=== PATIENT | male | born 1960 | race Caucasian/White ===

== ENCOUNTER 2019-05-17 12:08 | Inpatient (IN) ==
--- NOTE | 2019-05-17 12:30 | EKG Report ---
Test Performed on : 05/17/2019 12:20:30 PM Test Reason : sob Blood Pressure : / mmHG Vent. Rate : 100 BPM Atrial Rate : 100 BPM P-R Int : 138 ms QRS Dur : 082 ms QT Int : 358 ms P-R-T Axes : 009 045 031 degrees QTc Int : 461 ms Normal sinus rhythm. Cannot rule out Anterior infarct , age undetermined Abnormal ECG No previous ECGs available Unconfirmed Result
--- NOTE | 2019-05-17 12:44 | Diag Imaging Result Doc PS360 ---
EXAM: CHEST-2 VIEWS HISTORY: sob TECHNIQUE: Chest two views COMPARISON: 05/03/2019 FINDINGS: The lungs are well expanded. The heart is not enlarged. The vessels are not distended. Questionable small left basilar infiltrates. No consolidation. No pleural effusions. IMPRESSION: Questionable small left basilar infiltrate Electronically signed by Pio Burton 05/17/2019 12:42 PM
[2019-05-17] MEDS ORDERED: PERCOCET-5 PO ONE (14:18)
[2019-05-17 14:19] LABS: BASO# 0.02 X1000 (0.0-0.2); BASO% 0.5 % (0.0-0.8); EOS% 5.4 % (0.0-10.0); HEMATOCRIT 35.2 % (42.0-52.0); HEMOGLOBIN 11.9 g/dL (14.0-18.0); LYMPH# 0.44 X1000 (1.2-3.4); LYMPH% 11.8 % (20.5-51.1); MCHC 33.8 g/dL (33-37); MCV 91.7 FL (81-99); MONO# 0.44 X1000 (0.11-0.59); MONO% 11.8 % (1.7-9.3); MPV 11.7 FL (7.4-10.4); NEUT# 2.62 X1000 (1.4-6.5); NEUT% 70.5 % (42.2-75.2); PLT 68 X1000 (130-400); RBC 3.84 XMIL (4.7-6.1); RDW 14.5 % (11.5-14.5); WBC 3.72 X1000 (4.8-10.8)
[2019-05-17 14:32] LABS: ALB/GLOB RATIO 0.7; ALBUMIN 2.5 g/dL (3.5-5.0); CALCIUM 8.2 mg/dL (8.8-10.2); CREATININE 1.3 mg/dL (0.7-1.2); POTASSIUM 4.6 mmol/L (3.5-5.1); TOTAL BILIRUBIN 1.55 mg/dL (0.20-1.00); TOTAL PROTEIN 6.1 g/dL (6.3-8.3)
[2019-05-17 15:01] LABS: CK INDEX 3.3 (0.0-2.5); CK-MB 7.31 ng/mL (0.0-5.0); INR 1.36; PTT 33.5 Seconds (22.3-41.8)
--- NOTE | 2019-05-17 17:47 | Diag Imaging Result Doc PS360 ---
EXAM: US ABD PARACENTESIS W S/I 05/17/2019 HISTORY: palliative, ascites TECHNIQUE: Ultrasound-guided paracentesis COMMENT: The risk and benefit of the procedure including the possibility of bleeding, infection, puncture of hollow viscus, or reaction to lidocaine was discussed with the patient and he agreed to the procedure. Following sterile preparation the skin laterally on the right and administration 1% lidocaine to the skin and deeper soft tissues, the paracentesis catheter was placed and subsequently 8.5 L of dark cloudy yellow fluid was drawn. There are no immediate complications and the patient tolerated this procedure well. IMPRESSION: Successful ultrasound-guided paracentesis. Electronically signed by Jimbo Chowdhury 05/17/2019 5:45 PM
[2019-05-17] MEDS ORDERED: DILAUDID IV ONE (18:00)
[2019-05-17] MEDS ORDERED: ALBUMIN 25% IV ONE (18:00)
--- NOTE | 2019-05-17 18:34 | PROVIDER DOCUMENTATION ---
This chart was entered by Vivi Mast Scribe, acting as scribe for Nelson Billy MD. HPI-General Adult - General Chief Complaint: Shortness of Breath Stated Complaint: ABD PAIN Time Seen by Provider: 05/17/19 13:59 Source: patient Allergies/Adverse Reactions: Patient Allergies Allergy/AdvReac Type Severity Reaction Status Date / Time No Known Allergies Allergy Verified 05/03/19 09:23 Home Medications: Home Medication List Medication Instructions Recorded Confirmed Last Taken Type Insulin Glargine [Lantus] 50 unit SQ BID 02/17/15 05/03/19 04/19/19 History Spironolactone 100 mg PO DAILY 02/17/15 05/03/19 04/18/19 History Lactulose 45 ml PO BID 08/23/15 05/03/19 04/18/19 History Fluticasone Propionate 1 spray NOLAN DAILY 12/17/18 05/03/19 04/19/19 History Furosemide [Lasix] 80 mg PO DAILY 12/17/18 05/03/19 04/18/19 History Escitalopram Oxalate [Lexapro] 5 mg PO DAILY 01/14/19 05/03/19 04/18/19 History Hydrocodone/Acetaminophen 1 tab PO BID 01/14/19 05/03/19 04/18/19 History [Hydrocodone-Acetamin 5-325 mg] Cholecalciferol (Vit D3) [Vitamin 5,000 unit PO DAILY 03/30/19 05/03/19 04/18/19 History D3] Ciprofloxacin HCl [Cipro] 1 tab PO DAILY 04/19/19 05/03/19 04/18/19 History Docusate Sodium [Colace] 100 mg PO DAILY #30 cap 05/03/19 Unknown Rx Magnesium Citrate [Citrate of 300 ml PO ONCE #1 bottle 05/03/19 Unknown Rx Magnesia] - History of Present Illness -Gen Adult Nature of Presenting Problems: 58 yowm c/o sob, left abd pain and needs a paracentesis. pt sts comes to er for tx every 2 wks. pt has had ascites for 2 yrs. pt going to b for tx june 16- for tx. pt sts the fluid makes him gain 22-30lbs. denies nvd, fever and cp. 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 Location of Pain/Injury: reports: abdomen Pain Radiation: reports: no radiation Severity: reports: mild Timing: reports: still present Context/Activities at Onset: reports: none Associated Symptoms: reports: denies symptoms Review of Systems - Adult - REVIEW OF SYSTEMS - ADULT Constitutional: reports: see HPI, other (pt requests paracentesis). denies: chills, fever, fatique Eyes: reports: no symptoms reported Ears, Nose, Mouth & Throat: reports: no symptoms reported Cardiovascular: reports: no symptoms reported, see HPI. denies: chest pain, orthopnea, palpitations Respiratory: reports: see HPI, shortness of breath. denies: excessive sputum production, hemoptysis, pleurisy Gastrointestinal: reports: see HPI, abdominal pain (paracentesis). denies: diarrhea, nausea, vomiting Genitourinary: reports: no symptoms reported Musculoskeletal: reports: no symptoms reported Integumentary: reports: no symptoms reported Neurological: reports: no symptoms reported Psychiatric: reports: no symptoms reported Endocrine: reports: no symptoms reported Hematologic/Lymphatic: reports: no symptoms reported Allergic/Immunologic: reports: no symptoms reported All Other Systems: Reviewed and Negative Past History - Adult - PAST MEDICAL HISTORY-ADULT Review of Records: reports: Old Records Reviewed, Nursing Assessment Review, Medications Reviewed, Social history reviewed & non-contributory. Major Childhood Illnesses: reports: denies history Cardiovascular: reports: HTN Respiratory: reports: denies history Gastrointestinal: reports: hepatitis (non alcoholic cirrhosis), liver disease, other (esoph varices) Obstetrical/Gynecological: reports: denies history Genitourinary: reports: kidney disease Musculoskeletal: reports: denies history Neurological: reports: denies history Psychiatric: reports: depression Endocrine/Immune: reports: Diabetes Other Conditions: reports: other cancer (throat) - PRIOR SURGERIES/PROCEDURES Surgical/Procedure History: reports: other (paracentesis) - IMMUNIZATION STATUS Childhood Immunizations: See Nurse Assessment Flu Vaccine: See Nurse Assessment - FAMILY HISTORY Family History: reviewed, not pertinent - SOCIAL HISTORY Smoking: non-smoker Substance Use: none/never Physical Exam-General - PHYSICAL EXAM-ADULT Initial Vital Signs Reviewed: Yes - CONSTITUTIONAL General Appearance: alert, mild distress, obese. negative: cachetic, lethargic, slow to respond - EYES Eyes: PERRL/EOMI, pink conjunctivae - HEAD, EARS, NOSE, MOUTH & THROAT HENMT: normocephalic/atraumatic, moist mucous membranes, normal ENT inspection - NECK Neck: non-tender, full range of motion, supple, normal inspection - RESPIRATORY Respiratory: chest non-tender, lungs clear, normal breath sounds, no pleuratic chest pain, no respiratory distress, no accessory muscle use, other (pt laying on side to breathe). negative: respiratory distress, decreased breath sounds, rhonchi, stridor, wheezing - CARDIOVASCULAR Cardiovascular: normal peripheral pulses, regular rate, rhythm - GASTROINTESTINAL (ABDOMEN) Abdominal Exam: normal bowel sounds, soft, no organomegaly, no pulsatile mass, distended, tenderness. negative: non tender, guarding, rigid - LYMPHATIC Lymphatic: no adenopathy - MUSCULOSKELETAL Back Exam: normal inspection, no CVA tenderness, no vertebral tenderness Extremity: normal range of motion, non-tender, normal inspection Peripheral Pulses: radial (R): 2+, radial (L): 2+ - SKIN Integumentary: normal color, normal turgor, warm/dry - NEUROLOGIC Neurologic: grossly normal, no motor/sensory deficits - PSYCHIATRIC Psych/Mental Status: normal mood/affect, normal thought content, normal thought process, oriented x 3 Progress - PLAN OF CARE/RESULTS Progress/Plan/Lab Results: Vital Signs - 8 hr 05/17/19 12:11 Temperature 98.0 F Pulse Rate 104 H Respiratory Rate 18 Blood Pressure 158/91 O2 Sat by Pulse Oximetry 97 Orders Category Date Time Status Cardiac Monitoring DIRECTED Care 05/17/19 12:19 Active Saline Loc NOW Care 05/17/19 12:19 Active CHEST-2 VIEWS [RAD] Stat Exams 05/17/19 12:19 Completed CBC WITH ELECTRONIC DIFF [HEME] Stat Lab 05/17/19 14:04 Ordered CK PROFILE [SP CHEM] Stat Lab 05/17/19 14:04 Ordered COMPREHENSIVE METABOLIC PANEL [CHEM] Stat Lab 05/17/19 14:04 Ordered PRO B-NATRIURETIC PEPTIDE Stat Lab 05/17/19 14:04 Ordered PROTIME WITH INR [COAG] Stat Lab 05/17/19 14:04 Ordered PTT [COAG] Stat Lab 05/17/19 14:04 Ordered TROPONIN T Stat Lab 05/17/19 14:04 Ordered CP/SOB/Palp >45 yrs of Age Stat Oth 05/17/19 12:19 Ordered EKG [EKG] Stat Ther 05/17/19 12:19 Draft Result Diagrams: 05/17/19 14:00 05/17/19 14:00 - REASSESSMENT Reassessment #1 Time Reassessed: 17:37 Status: other (pt is insisting to Dr. Billy that he is not having cp. while pt was at interventional rad I received lab results (apparently ordered by triage personnel) that his trop and ck-mb were elevated. I reviewed his initial ECG and found no injury pattern. I have ordered repeat assays (pending) and a repeat EKG is entirely normal. The patient states his abdomen pushes up on his chest but he is having absolutely no chest pain and no symptoms not typical of his prior serial presentations for paracentesis.) - EKG 1 Time of EKG reading by physician:: 12:22 EKG Read and Signed by:: Nelson Billy EKG Interpretation (*Must complete 3 of following elements*): Abnormal Rate: 100 (cannot rule out anterior infarct, age undetermined ) Rhythm: NSR [place]: normal NC Interval: normal ST Wave: normal 2 Time of EKG reading by physician:: 17:49 EKG Read and Signed by:: Nelson Billy EKG Interpretation (*Must complete 3 of following elements*): Normal Rate: 84 Rhythm: NSR [place]: normal QRS: normal NC Interval: normal ST Wave: normal - XRAY 1 XRAY: Bilateral XRAY Study: Chest Impression: Abnormal, See EMR Report (EXAM: CHEST-2 VIEWS HISTORY: sob TECHNIQUE: Chest two views COMPARISON: 05/03/2019 FINDINGS: The lungs are well expanded. The heart is not enlarged. The vessels are not distended. Questionable small left basilar infiltrates. No consolidation. No pleural effusions. IMPRESSION: Questionable small left basilar infiltrate Electronically signed by Pio Burton 05/17/2019 12:42 PM) - CONSULTS/PCP/HOSPITALIST Notification #1 *Consult/PCP/Hospitalist*: discussed card E w/ Dr. Rahman who agreed to adm for Card evaluation - CHANGE OF SHIFT REPORT (ED Provider) 1 Report Given and Care Transferred to:: Dr. Tamez Time of Transfer: 19:00 Items Pending: Labs Departure - Departure Date of Disposition Decision: 05/17/19 Time of Disposition Decision: 18:53 DIAGNOSIS: End stage liver disease, Abnormal cardiac enzyme level Disposition: ADMITTED INPATIENT 09 Certified Medical Emergency: Emergent Condition: Stable Referrals and Follow-Ups: None,PCP [Primary Care Provider] - - Critical Care Note This patient required my direct & personal management of CC.: No Attestation - Physician/ AMAURY Attestation Patient care was provided by Advanced Practice Provider:: No The physician spent face to face time with patient:: Yes Advanced Practice Provider documentation review:: Supervising physician onsite and consulted in the evaluation and care of this patient. The physician did have a face to face encounter with the patient. This chart was documented by the indicated scribe, (Vivi Mast, Antonella) and accurately reflects the services I performed and decisions made by me, Nelson Billy MD, as attested by the provider's signature.
[2019-05-17 19:33] LABS: CK-MB 7.53 ng/mL (0.0-5.0)
--- NOTE | 2019-05-17 20:13 | HISTORY AND PHYSICAL ---
HISTORY OF PRESENT ILLNESS: This is a patient with cirrhosis due to nonalcoholic steatohepatitis. He came in today for abdominal swelling. He comes periodically for paracentesis. I am not sure why it is done through the ER, but it has been done through the ER. He came back in March and then end of March, almost a month ago, and now he has come back again this evening. He had shortness of breath, so lab work in the ER was obtained prior to evaluation, which showed an elevated troponin. The patient denies any chest pain. No fever. He does have some dyspnea associated with ascites, but that is improved after his paracentesis, but he had abnormal cardiac enzymes, so we were requested to admit him for evaluation. Troponin was mildly elevated. CK and CK-MB were mildly elevated. He does have some baseline renal insufficiency with CKD in a stage 3 level. Looking at his numbers, he is right around stage 2 to 3. He is a GARCIA patient who is about to be listed for transplant, but that has not happened now. PAST MEDICAL HISTORY: 1. Type 2 diabetes. 2. Dyslipidemia. 3. Cirrhosis due to GARCIA. 4. Depression. 5. Stage 3 chronic renal failure. PAST SURGICAL HISTORY: Denies any major procedures. SOCIAL HISTORY: No tobacco. No ethanol. FAMILY HISTORY: Mother and father had heart issues, but around 65 years of age. Father was heavy drinker, heavy tobacco user. ALLERGIES: No known drug allergies. MEDICATIONS: List is being compiled, but he is on Lantus, Lasix, and Aldactone. REVIEW OF SYSTEMS: Otherwise negative times a 10 point review of systems. PHYSICAL EXAMINATION: VITAL SIGNS: Blood pressure is 158/91, heart rate of 104, respiratory rate 18, temperature 98 degrees, 97% on room air. CARDIOVASCULAR: Regular rate and rhythm. PULMONARY: Bilateral breath sounds. Clear to auscultation. GI: Soft, nontender, nondistended. Bowel sounds are positive. He does have still some residual ascites on exam. EYES: Sclerae anicteric. NECK: Supple. NEUROLOGIC: Nonfocal. No evidence of asterixis. MUSCULOSKELETAL: 4/5 in all 4 extremities. LABORATORY DATA: White count 3.7, hemoglobin and hematocrit 11 and 35, platelets of 68,000. INR of 1.36. Creatinine of 1.3, total bilirubin of 1.55, AST and ALT of 52 and 51, CK of 252, CK-MB of 7.53, and troponin was 0.094, which has pretty much been the same. MB went up a little bit. EKG did not show any specific changes. Ultrasound paracentesis today; 8.5 L of fluid was removed. ASSESSMENT: This is a 58-year-old male with history of nonalcoholic steatohepatitis cirrhosis, chronic renal failure, presenting with shortness of breath related to ascites, but on incidental labs, he has positive cardiac markers. No clear symptoms associated. Electrocardiogram is nonspecific. 1. Abnormal cardiac enzymes. We will get a cardiology opinion. We will get a couple more sets of enzymes, order echocardiogram, and keep him nothing by mouth until we can get that information. It does not appear he has had unstable angina. He does have risk factors for that between nonalcoholic steatohepatitis cirrhosis and diabetes. He may need further cardiac workup. He has renal insufficiency which we will see if they want to decide to do left heart catheterization versus stress versus other things. We will start low-dose aspirin, although obviously there is concern over bleeding, and I am reluctant to start any anticoagulation until we get a little bit more definitive proof. We will get an echocardiogram tomorrow and follow. 2. Cirrhosis. He is on a monthly schedule for paracenteses. We will see if the fluid was abnormal. The thing is, I do not think any labs were ordered on that fluid, but we will continue diuretics. He is on Aldactone and Lasix. We will continue to follow closely. 3. Diabetes. We will continue to monitor blood sugars, sliding scale, check an A1c, and follow. DISPOSITION: Pending his clinical course. cc: Nicholas Rahman MD
[2019-05-17] MEDS ORDERED: NEXIUM IV SCH (20:32)
[2019-05-17] MEDS ORDERED: SODIUM CHLORIDE 0.9% INJ SCH (20:32)
[2019-05-17] MEDS ORDERED: ZOFRAN IV PRN (20:32)
[2019-05-17] MEDS ORDERED: TYLENOL PO PRN (20:32)
[2019-05-17] MEDS ORDERED: HUMULIN R SUBQ SCH (21:00)
[2019-05-17] MEDS ORDERED: LOPRESSOR PO SCH (21:00)
[2019-05-17] MEDS: PROTONIX IV SCH (21:32)
[2019-05-17] MEDS: ASPIRIN EC PO SCH (21:32)
[2019-05-17] MEDS: SODIUM CHLORIDE 0.9% INJ SCH (21:32)
--- NOTE | 2019-05-17 22:54 | EKG Report ---
Test Performed on : 05/17/2019 5:49:44 PM Test Reason : elev troponin Blood Pressure : / mmHG Vent. Rate : 084 BPM Atrial Rate : 084 BPM P-R Int : 202 ms QRS Dur : 092 ms QT Int : 382 ms P-R-T Axes : 046 049 057 degrees QTc Int : 451 ms Normal sinus rhythm. Normal ECG When compared with ECG of 17-MAY-2019 12:20, (Unconfirmed) No significant change was found Unconfirmed Result
[2019-05-17] MEDS: MORPHINE IV PRN (23:14)
[2019-05-18] MEDS: MORPHINE IV PRN (04:12)
--- NOTE | 2019-05-18 07:09 | EKG Report ---
Test Performed on : 05/18/2019 07:02:52 AM Test Reason : cp Blood Pressure : / mmHG Vent. Rate : 087 BPM Atrial Rate : 087 BPM P-R Int : 178 ms QRS Dur : 094 ms QT Int : 392 ms P-R-T Axes : 033 053 045 degrees QTc Int : 471 ms Normal sinus rhythm. Nonspecific T wave abnormality Prolonged QT Abnormal ECG When compared with ECG of 17-MAY-2019 17:49, (Unconfirmed) No significant change was found Confirmed by Octavio Hernández MD ([id number]) on 05/18/2019 8:31:01 AM
[2019-05-18 07:14] LABS: BASO# 0.03 X1000 (0.0-0.2); BASO% 0.9 % (0.0-0.8); EOS% 5.7 % (0.0-10.0); HEMATOCRIT 35.8 % (42.0-52.0); HEMOGLOBIN 12.1 g/dL (14.0-18.0); LYMPH# 0.55 X1000 (1.2-3.4); LYMPH% 15.8 % (20.5-51.1); MCH 30.7 PG (27-31); MCHC 33.8 g/dL (33-37); MCV 90.9 FL (81-99); MONO# 0.46 X1000 (0.11-0.59); MONO% 13.2 % (1.7-9.3); MPV 10.9 FL (7.4-10.4); NEUT# 2.24 X1000 (1.4-6.5); NEUT% 64.4 % (42.2-75.2); PLT 71 X1000 (130-400); RBC 3.94 XMIL (4.7-6.1); RDW 14.4 % (11.5-14.5); WBC 3.48 X1000 (4.8-10.8)
[2019-05-18 07:18] LABS: ALB/GLOB RATIO 0.6; ALBUMIN 2.2 g/dL (3.5-5.0); CREATININE 1.3 mg/dL (0.7-1.2); MAGNESIUM 1.7 mg/dL (1.5-2.7); POTASSIUM 4.5 mmol/L (3.5-5.1); TOTAL BILIRUBIN 1.83 mg/dL (0.20-1.00); TOTAL PROTEIN 5.6 g/dL (6.3-8.3)
[2019-05-18] MEDS: ALDACTONE PO SCH (10:20)
[2019-05-18] MEDS: LASIX PO SCH (10:21)
[2019-05-18] MEDS: ASPIRIN EC PO SCH (10:21)
[2019-05-18] MEDS ORDERED: ROBAXIN PO PRN (10:45)
[2019-05-18] MEDS ORDERED: ROBAXIN PO ONE (10:45)
[2019-05-18] MEDS: PERCOCET-5 PO PRN ×3 (11:42→23:17)
--- NOTE | 2019-05-18 12:35 | CARDIOLOGY CONSULTATION ---
DATE: 05/18/2019 CONSULTATION REQUESTED BY: The hospitalist service. REASON FOR CONSULTATION: Possible myocardial infarction. PRIMARY PHYSICIAN: Motor Vehicle Emissions Inspector, Dr. Holman at [facility]. CHIEF COMPLAINT: Abdominal swelling, shortness of breath, abnormal cardiac enzymes. HISTORY: Mr. Winn is a 58-year-old, male who came in yesterday to the emergency room, expecting to have a routine paracentesis. The patient reported having some increasing dyspnea and he had been having the paracenteses periodically, every couple of weeks for some time now. Because the patient reported having some increasing symptoms, the emergency room physician went ahead and did an EKG that showed sinus rhythm with no significant ST-T abnormalities. They have repeated the EKG again which looked pretty unremarkable the same day at 5:49 p.m. and then this morning at 7 a.m., the EKG showed sinus rhythm with a nonspecific T-wave flattening. The patient's cardiac enzymes were reported initially at 219 and then subsequently 252. This is a total CPK. The CK-MB fraction was 7.31 and then 7.53. The index was 3.3% and then 3%. Her troponin levels were noted to be 0.095 and 0.094. They are more troponins and CPKs requested. Initial BUN and creatinine were elevated at 28 and 1.3, subsequent 25 and 1.3. His albumin level is 2.5 and 2.2. The patient denies having any chest pain. 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 The patient had 9 L of ascitic fluid removed yesterday. An ultrasound was done and it showed that there was a cloudy yellow fluid drawn. PAST MEDICAL HISTORY: The patient's past history is positive for cirrhosis of the liver, which is nonalcoholic steatohepatitis. He has diabetes mellitus type 2. He has dyslipidemia. He has chronic kidney disease and depression. The patient was morbidly obese. He still has a body mass index of 42. PAST SURGICAL HISTORY: His surgical history is negative other than banding of esophageal varices and gastric varices by gastroenterology service in the past for recurrent gastrointestinal bleeding. The last episode of gastrointestinal bleeding happened over a year and a half ago. SOCIAL HISTORY: He is single, disabled. Lives in [place]. Not a smoker or a drinker. FAMILY HISTORY: Both parents had heart disease. ALLERGIES: Noncontributory. HOME MEDICATIONS: Listed at this time included vitamin D3, ciprofloxacin, docusate, Lexapro, fluticasone, furosemide, hydrocodone, acetaminophen, insulin Lantus 50 units twice a day, lactulose 40 mL twice a day, spironolactone 100 daily, and magnesium citrate. REVIEW OF SYSTEMS: The patient has had some chronic puffiness of the ankles. Some exertional dyspnea, usually when he gains weight and the abdomen gets distended. He has had no chest pain. He says that he has been exercising regularly under the guidance of a personal injury litigation paralegal to improve his endurance and muscle tone. No other major positive. He tells me that he has been upgraded in the transplant list at [facility] because his score is up to 21 and that makes him at high risk of bad outcomes in the next few months if transplantation is not carried out. PHYSICAL EXAMINATION: Today, blood pressure 113/51, temperature 97.8 degrees, pulse 87, respirations 19. He is awake, alert, obese, in no distress. HEENT: Unremarkable. Chest: Sounds clear to auscultation and percussion. Heart: Sounds are regular and rhythmic. I do not hear any gallop or murmur. Abdomen: Distended with ascites. I could not feel any hepatomegaly or splenomegaly. Extremities: Show trace edema. Good pulses. Neurologic Examination: Nonfocal. Moves all 4 extremities. LABORATORY DATA: Blood work includes a white cell count of 3480, hemoglobin 12.1, hematocrit 35.8, platelet count 71,000. Sodium 135, potassium 4.5, BUN 25, creatinine 1.3. Albumin is 2.2. IMPRESSION: 1. Patient who presents with increasing ascites and he is status post paracentesis. He has cirrhosis of the liver secondary to nonalcoholic steatohepatitis. 2. Non-ST elevation myocardial infarction. This probably relates to a hemodynamic problem related to the portal hypertension and cirrhosis. 3. The patient has some evidence of coronary atherosclerosis on CT scan of the abdomen. There is some calcification of the left anterior descending and also the right coronary artery. 4. Diabetes mellitus type 2. 5. Morbid obesity. 6. Chronic kidney disease. 7. Thrombocytopenia, leukopenia, and anemia, probably related to splenomegaly/hypersplenism. RECOMMENDATIONS: At this time, we will arrange for a walking Lexiscan MPI study to further risk stratify this patient. If the nuclear stress test shows that there is a significant area of myocardium at jeopardy, then I will recommend to do a coronary arteriogram with intention of proceeding with stenting of the culprit vessel with a bare metal stent. This has to be understood by all parties because this patient cannot be subjected to long-term antiplatelet therapy due to his tendency to bleed. Further intervention will depend on the results of the aforementioned test. At this time, the patient appears hemodynamically stable. cc: Josias Jarrett MD MTDD
--- NOTE | 2019-05-18 13:54 | GASTROENTEROLOGY CONSULTATION ---
DATE: 05/18/2019 REASON FOR CONSULTATION: History of cirrhosis of the liver. HISTORY OF PRESENT ILLNESS: This is a 58-year-old, male who came in for an outpatient scheduled paracentesis. Patient states he is followed by Dr. Holman at [facility]. He has been following with him for approximately 5 years. He gets a local paracentesis biweekly per patient report. He came in for his scheduled paracentesis yesterday. He had reported to the emergency room that he was having some increased shortness of breath. Lab work was done including cardiac evaluation which had shown some elevation in his cardiac enzymes and troponin. He was admitted to the hospital for further evaluation. During his paracentesis, 8.5 L of dark cloudy yellow fluid was removed. I do not see where there was any fluid analysis done. Patient states he did receive albumin. Patient is very knowledgeable of his diagnosis of cirrhosis. He states he usually takes lactulose 90 mL daily and adjusts as needed. He states he has just been approved to start Xifaxan prescribed by Dr. Holman and he is waiting on the delivery of that medication. He usually has approximately 3 bowel movements daily. He does report shortness of breath more so when it is time for his paracentesis. He reported in February 2012, he had GI bleeding with a diagnosis of esophageal variceal bleed. He states his last EGD was about a year and a half ago. He states he does not see a local sash maker. Again, he has been following with Dr. Holman for approximately 5 years. He states he has been bumped up on the transplant evaluation list and actually has an appointment for a 3 day workup starting May. The patient's diagnosis of cirrhosis is related to nonalcoholic steatohepatitis. The patient is overweight. He has been working on diet and weight loss. He has denied any chest pain. At the time of my evaluation, he was finishing up his echocardiogram. PAST MEDICAL HISTORY: Cirrhosis of the liver due to GARCIA (nonalcoholic steatohepatitis), stage 3 chronic renal failure, type 2 diabetes, dyslipidemia, history of depression. PAST SURGICAL HISTORY: None reported. ALLERGIES: No known drug allergies. MEDICATIONS: Vitamin D3 5000 units daily, Cipro 1 tablet daily, Colace 100 mg daily, Lexapro 5 mg daily, fluticasone 1 spray nasally daily, Lasix 80 mg daily, hydrocodone/acetaminophen 5/325 mg twice a day, Lantus insulin 50 units twice a day, lactulose 45 mL twice a day, magnesium citrate as needed, spironolactone 100 mg daily. SOCIAL HISTORY: No reported tobacco or alcohol use. REVIEW OF SYSTEMS: Per history of present illness. The patient has denied chest pain but reports shortness of breath. He does have increased fluid retention and has biweekly paracenteses here locally, managed by Dr. Holman at [facility]. PHYSICAL EXAMINATION: Vital Signs: Temperature 97.8 degrees, pulse 87, respirations 19, blood pressure 113/51. General: The patient is awake and alert, in no acute distress. HEENT: Normocephalic, atraumatic. Pupils equal, round, reactive to light. Sclerae are nonicteric. Cardiovascular: Regular rate and rhythm. Respiratory: Lung sounds essentially clear bilaterally. Abdomen: Obese. He has a Band-Aid from his paracentesis yesterday to the right lower quadrant. Abdomen is nontender. Positive bowel sounds. Extremities: With some bilateral lower extremity edema noted. Neurological: Cranial nerves 2-12 grossly intact. Patient is awake, alert, oriented to person, place, and time. DIAGNOSTIC RESULTS: Laboratory: Hematology: WBC 3.48, hemoglobin 12.1, hematocrit 35.8, MCV 90.9, platelets 71,000. Coagulation: Prothrombin time 17.0, INR 1.36, PTT 33.5. Chemistry: Sodium 135, potassium 4.5, chloride 104, CO2 of 24, BUN 25, creatinine 1.3, glucose 248. Total bilirubin 1.83, AST 43, ALT 41, alkaline phosphatase 160. Creatine kinase 194, creatine kinase index 3.0, CK-MB 7.53, troponin 0.114. ProBNP 107. Total protein 5.6, albumin 2.2. TSH 177. Paracentesis ultrasound on 05/17/2019 showed 8.5 L of dark cloudy yellow fluid was withdrawn. I do not see where there were any fluid analyses done on the ascitic fluid. ASSESSMENT AND PLAN: 1. Cirrhosis of the liver with recurrent ascites requiring frequent paracenteses. The patient follows with Dr. Holman at [facility]. He has an appointment for evaluation to be placed on transplant list on June 16. 2. Abnormal cardiac enzymes with recurrent shortness of breath. The patient has been seen by cardiology and evaluation is in progress. 3. We will continue to follow. I recommend he take his scheduled medications and diuretics for cirrhosis of the liver. We will try to see if there is any fluid available in the lab or pathology to order some analysis from his paracentesis yesterday. I recommend he follow with Dr. Holman as scheduled. We will continue to follow during his hospital course. I have discussed this case with Dr. Knight. Thank you for this consultation. Dictated by HOLLI Tejada for Jorge Knight MD cc: HOLLI Mcnamara MD [facility]
[2019-05-18] MEDS: CIPRO PO SCH (14:20)
[2019-05-18 15:36] LABS: GLUCOSE BODY FLUID 319 mg/dL; TOTAL PROT BODY FLUID 0.7 g/dL
[2019-05-18 16:06] LABS: BODY FLUID SOURCE ASCETIC FLUID; MONOS 82 %; POLYS 18 %; WBC BF 159 /cumm
--- NOTE | 2019-05-18 16:10 | ECHO REPORT ---
ORDER DATE: 05/17/2019 INTERPRETING PHYSICIAN: Dr. Lobo Angelo ECHOCARDIOGRAPHIC MEASUREMENTS: 1. Interventricular septum 1.1. 2. Left ventricular diastolic diameter 4.2. 3. Left atrium 4. 4. Aorta 3.2. FINDINGS: 1. Aortic valve leaflets mildly sclerosed. Trileaflet opening normally. 2. Mitral valve was normal. 3. Tricuspid valve was normal. 4. Pulmonic valve was normal. 5. There is trace to mild mitral regurgitation. 6. Peak velocity across the aortic valve less than 2 m/sec. There is no aortic stenosis or regurgitation. There is trace tricuspid regurgitation. 7. Peak velocity across the tricuspid valve less than 2 m/sec. 8. Normal left ventricular cavity size. Estimated ejection fraction of 65% to 70%. 9. There is no pericardial effusion or obvious intracardiac mass or thrombus. cc: MD Nicholas Cervantes MD
--- NOTE | 2019-05-18 17:16 | PROGRESS NOTE ---
DATE: 05/18/2019 SUBJECTIVE: Patient has no major complaints. OBJECTIVE: Blood pressure is stable 116/61, heart rate of 84, respiratory rate 14, temperature 97.4 degrees, 100% on room air.Cardiovascular: Regular rate and rhythm. Pulmonary: Bilateral breath sounds clear to auscultation. Gastrointestinal: Soft, nontender, nondistended. Bowel sounds are positive. His abdomen is still protuberant. There is still fluid. LABORATORY DATA: White count is 3, hemoglobin 12, hematocrit 35, platelets 71,000. Creatinine 1.3. Troponin is 0.114. PROBLEM LIST: 1. Abnormal cardiac enzymes. We will continue to follow. I greatly appreciate Dr. Jarrett's help. He may have had a non-STEMI. He is going to get a Lexiscan, and we will continue to follow, see if there is significant ischemia/perfusion defects.We will do coronary angiogram based on stress testing which will be accomplished tomorrow. If stable, then we will continue to follow. Disposition pending clinical status. 2. Cirrhosis. He is about to be listed for transplant, but right now he cannot be done with that. 3. Nonalcoholic steatohepatitis. We will continue to follow closely. 4. Type 2 diabetes. Continue his regular medications and follow. DISPOSITION: Pending his clinical status. cc: Nicholas Rahman MD [facility]
[2019-05-18 18:11] LABS: ALB/GLOB RATIO 0.7; ALBUMIN 2.7 g/dL (3.5-5.0); CALCIUM 8.3 mg/dL (8.8-10.2); CREATININE 1.5 mg/dL (0.7-1.2); POTASSIUM 4.8 mmol/L (3.5-5.1); TOTAL BILIRUBIN 1.82 mg/dL (0.20-1.00); TOTAL PROTEIN 6.4 g/dL (6.3-8.3)
[2019-05-18] MEDS ORDERED: HUMALOG IV ONE (18:38)
[2019-05-18] MEDS: PROTONIX IV SCH (20:55)
[2019-05-18] MEDS: LANTUS INSULIN SUBQ SCH (20:55)
[2019-05-18] MEDS: HUMALOG SUBQ SCH (20:55)
[2019-05-18] MEDS: SODIUM CHLORIDE 0.9% INJ SCH (20:55)
[2019-05-18] MEDS: LACTULOSE PO SCH (20:55)
[2019-05-18] MEDS ORDERED: HUMALOG SUBQ SCH (21:00)
[2019-05-18] MEDS ORDERED: NORCO-5 PO SCH (21:00)
[2019-05-19] MEDS: PERCOCET-5 PO PRN (04:07)
[2019-05-19] MEDS: HUMALOG SUBQ SCH ×2 (06:01→13:06)
--- NOTE | 2019-05-19 07:21 | EKG Report ---
Test Performed on : 05/19/2019 06:30:37 AM Test Reason : dyspnea Blood Pressure : / mmHG Vent. Rate : 089 BPM Atrial Rate : 089 BPM P-R Int : 174 ms QRS Dur : 088 ms QT Int : 368 ms P-R-T Axes : 038 049 030 degrees QTc Int : 447 ms Normal sinus rhythm. Normal ECG When compared with ECG of 18-MAY-2019 07:02, No significant change was found Confirmed by Octavio Hernández MD ([id number]) on 05/19/2019 12:02:37 PM
[2019-05-19 08:10] LABS: BASO# 0.02 X1000 (0.0-0.2); BASO% 0.6 % (0.0-0.8); EOS# 0.18 X1000 (0.0-0.7); EOS% 5.1 % (0.0-10.0); HEMATOCRIT 34.7 % (42.0-52.0); HEMOGLOBIN 11.5 g/dL (14.0-18.0); LYMPH# 0.52 X1000 (1.2-3.4); LYMPH% 14.9 % (20.5-51.1); MCH 30.3 PG (27-31); MCHC 33.1 g/dL (33-37); MCV 91.3 FL (81-99); MONO# 0.42 X1000 (0.11-0.59); MPV 10.9 FL (7.4-10.4); NEUT# 2.36 X1000 (1.4-6.5); NEUT% 67.4 % (42.2-75.2); PLT 67 X1000 (130-400); RDW 14.5 % (11.5-14.5)
[2019-05-19] MEDS: LASIX PO SCH (08:11)
[2019-05-19] MEDS: ALDACTONE PO SCH (08:12)
[2019-05-19] MEDS: ASPIRIN EC PO SCH (08:12)
--- NOTE | 2019-05-19 08:12 | CARDIOLOGY PROGRESS NOTE ---
DATE: 05/19/2019 CHIEF COMPLAINT: Abnormal blood tests, abdominal bloating. SUBJECTIVE: Mr. Winn had an uneventful night. He is feeling fine today. He is not having any discomfort in the abdomen or chest. His breathing is comfortable. OBJECTIVE: VITAL SIGNS: Blood pressure is 123/74, temperature 98.4 degrees, pulse 84. respirations 18. GENERAL: He is awake, alert, oriented, in no distress. HEENT: Normal. CHEST: Clear to auscultation and percussion. HEART: Sounds are regular and rhythmic. I do not hear gallop or murmur. ABDOMEN: Distended with ascites. EXTREMITIES: Showed no significant edema. NEUROLOGICAL: Follows commands, moves 4 extremities. BLOOD WORK: This morning, his glucose 220. His troponin has drifted to 0.101. The high was 0.114. This patient presented basically with some shortness of breath due to abdominal distention and then they tested troponin levels that were abnormal and that led to the suspicion of myocardial infarction. His CPKs were also elevated at 219, they peaked at 252 and they dropped to 192. His CKMB fraction by index was positive. The highest CKMB measured is 7.53 nanograms per mL. 1. Therefore, patient may have suffered a small non-[place]. 2. Cirrhosis with advanced liver failure. 3. Hypersplenism. 4. Pancytopenia secondary to that. 5. Morbid obesity. 6. Coronary atherosclerosis detected on CT of the abdomen involving LAD and right coronary artery. RECOMMENDATIONS: We will pursue with stress testing today. The resting gated images from yesterday showed normal myocardial perfusion. I did not see any definite defect. If his stress test is abnormal, then I will recommend a heart catheterization with a specific intention to pursue with intervention using a bare metal stent to limit the extent of antiplatelet therapy. The patient does have varices in the esophagus and stomach that could potentially bleed in a catastrophic manner. Otherwise, if the stress test is completely negative, I believe I will let the patient go home and then discuss further intervention with his team of hepatologists and other physicians at [facility] since the patient is getting closer to being included in the liver transplant roll. cc: Josias Jarrett MD
[2019-05-19] MEDS: LANTUS INSULIN SUBQ SCH (08:13)
[2019-05-19] MEDS ORDERED: LEXAPRO PO SCH (09:00)
[2019-05-19] MEDS ORDERED: COLACE PO SCH (09:00)
[2019-05-19] MEDS ORDERED: LEXISCAN ONE (09:59)
[2019-05-19 12:19] VITALS: BP 141/74
[2019-05-19] MEDS: LACTULOSE PO SCH (13:05)
[2019-05-19] MEDS: CIPRO PO SCH (13:17)
--- NOTE | 2019-05-19 13:29 | Diag Imaging Result Document ---
PROCEDURE NAME: MYOCARDIAL PERF SCAN, STR/REST - 05/18/2019 INDICATION: Non-ST elevation ID, history of cirrhosis. PROCEDURES PERFORMED: 1. Walking Lexiscan stress. 2. Two-day stress rest myocardial perfusion imaging. PROCEDURE IN DETAIL: Mr. Winn was brought to the nuclear laboratory and had a resting study with injection of 40.8 mCi of technetium-99m sestamibi with the usual imaging protocol utilized. He subsequently was brought back and had a walking Lexiscan and at peak stress, was injected with 41.4 mCi of technetium-99m sestamibi with the usual imaging protocol utilized. FINDINGS: Lexiscan stress results: 1. Baseline EKG shows sinus rhythm, nonspecific diffuse ST changes noted. 2. Lexiscan stress did not demonstrate any clear evidence of ischemic related EKG changes or significant arrhythmias during the study. Perfusion imaging results: 1. No evidence of abnormal extracardiac uptake. 2. TID ratio was 0.91. 3. Perfusion imaging demonstrates no evidence of ischemic changes. There may be some very small amount of scant inferior soft tissue attenuation in the basal and mid inferior hodge. Wall motion is intact in this area. Again, no evidence of ischemic changes. 4. Normal ejection fraction of 90% on stress with an end-diastolic volume of 96, end-systolic volume of 10. Normal wall motion. cc: MD Josias Aviles MD
--- NOTE | 2019-05-19 19:50 | GASTROENTEROLOGY PROGRESS NOTE ---
DATE: 05/19/2019 SUBJECTIVE: Patient is sitting up on the side of the bed in no acute distress. He has a friend at the bedside. The patient states he has had a stress test today, waiting on those results, following with Cardiology. Fluid analysis from his paracentesis did not show evidence of bacterial peritonitis. OBJECTIVE: Vital Signs: Temperature 98.6 degrees, pulse 97, respirations 17, blood pressure 141/74. General: Patient is awake and alert, in no acute distress. LABORATORY: Hematology: WBC 3.50, hemoglobin 11.5, hematocrit 34.7, MCV 91.3, platelets 67,000. Chemistry: Sodium 134, potassium 4.8, chloride 101, CO2 25, BUN 25, creatinine 1.5, glucose 338, total bilirubin 1.82, AST 52, ALT 48, alkaline phosphatase 179, creatine kinase 192. Troponin 0.101. These labs were from 05/18/2019. ASSESSMENT AND PLAN: 1. Cirrhosis of the liver with recurrent ascites, requiring frequent paracentesis. Fluid analysis did not show evidence of bacterial peritonitis. Patient is following with Dr. Holman at [facility]. He has an appointment for evaluation for transplant list on . Recommend he keep that appointment. 2. Abnormal cardiac enzymes, shortness of breath. Patient is currently undergoing cardiac evaluation. Continue recommendations by hedis abstractor. 3. Continue current medications. We will be available as needed. Recommend that patient follow with Dr. Holman as scheduled at [facility]. I have discussed this case with Dr. Knight. Dictated by HOLLI Tejada for Jorge Knight MD cc: HOLLI Mcnamara MD
--- NOTE | 2019-05-20 05:46 | DISCHARGE SUMMARY ---
ADMISSION DATE: 05/17/2019 DISCHARGE DATE: 05/19/2019 DISCHARGE DIAGNOSES: 1. Abnormal cardiac enzymes, perhaps demand ischemia related to a paracentesis, possible hypoperfusion after paracentesis. 2. Cirrhosis due to nonalcoholic steatohepatitis. 3. Type 2 diabetes. CONSULTATIONS: Dr. Jarrett. PROCEDURES: Paracentesis which she had 8.5 L of fluid removed. IMAGIN. Echocardiogram showed an EF of 65 to 70 percent. No major valvular pathology. 2. Myocardial perfusion scan showed no evidence of perfusion defect. No wall motion abnormalities. EF was actually 90%. Test was felt to be negative. Cardiology felt that the patient, therefore, did not have ischemic heart disease, not entirely sure what caused his abnormal cardiac enzymes, but if stress test was negative felt he could follow up with his transplant physicians, and they would be able to allow him to be discharged and proceed with his transplant evaluation. DISCHARGE CONDITION: Stable. DISCHARGE MEDICATIONS: He was maintained on his regular medications. 1. Cipro 500 daily. 2. Fluticasone daily. 3. [place] p.r.n. 4. Lactulose 45 b.i.d. 5. Lantus 50 b.i.d. 6. Lasix 80 daily. 7. Lexapro 5 daily. 8. Spironolactone 100 daily. 9. Colace 100 daily TIME SPENT: 32 minute discharge. cc: MD Dr. River Murrell at [facility]
== END 2019-05-19 15:33 | disposition home or self-care (01) | DRG 433 ==
LOC: ED 12:08 → 2N 20:35
PROVIDERS: ATTEND Internal Medicine

== ENCOUNTER 2019-10-06 08:19 | Inpatient (IN) ==
[2019-10-06] MEDS ORDERED: NORFLEX IM ONE (10:46)
[2019-10-06] MEDS ORDERED: DILAUDID IV ONE (10:47)
[2019-10-06] MEDS ORDERED: ZOFRAN IV ONE (10:47)
[2019-10-06 11:59] LABS: BASO# 0.03 X1000 (0.0-0.2); BASO% 0.5 % (0.0-0.8); EOS# 0.24 X1000 (0.0-0.7); EOS% 4.3 % (0.0-10.0); HEMATOCRIT 36.9 % (42.0-52.0); HEMOGLOBIN 12.3 g/dL (14.0-18.0); IMM GRAN# 0.03 X1000 (0.0-0.04); IMM GRAN% 0.5 % (0.0-0.5); LYMPH# 0.64 X1000 (1.2-3.4); LYMPH% 11.5 % (20.5-51.1); MCH 30.4 PG (27-31); MCHC 33.3 g/dL (33-37); MCV 91.1 FL (81-99); MONO# 0.44 X1000 (0.11-0.59); MONO% 7.9 % (1.7-9.3); MPV 11.4 FL (7.4-10.4); NEUT# 4.17 X1000 (1.4-6.5); NEUT% 75.3 % (42.2-75.2); PLT 84 X1000 (130-400); RBC 4.05 XMIL (4.7-6.1); RDW 15.5 % (11.5-14.5); WBC 5.55 X1000 (4.8-10.8)
[2019-10-06 12:05] LABS: ALB/GLOB RATIO 0.6; ALBUMIN 2.5 g/dL (3.5-5.0); CALCIUM 8.4 mg/dL (8.8-10.2); POTASSIUM 4.7 mmol/L (3.5-5.1); TOTAL BILIRUBIN 2.07 mg/dL (0.20-1.00); TOTAL PROTEIN 6.7 g/dL (6.3-8.3)
--- NOTE | 2019-10-06 14:38 | Diag Imaging Result Doc PS360 ---
US ABD PARACENTESIS W S/I - 10/06/2019 INDICATION: Ascites COMPARISON: 09/29/2019 FINDINGS: The risks and benefits of the procedure were discussed with the patient. All questions were answered. Written and verbal consent was obtained. Ultrasound scanning demonstrated ascites. Overlying skin was prepped and draped in sterile fashion. Local anesthesia was achieved with injection of 10 cc 1% lidocaine. The paracentesis catheter was advanced until the return of ascites fluid. 12.4 L of blood-tinged serosanguineous fluid was aspirated. The catheter was withdrawn intact. There were no known complications. IMPRESSION: Technically successful ultrasound-guided paracentesis with no known complications. Electronically signed by Jose Mast 10/06/2019 2:36 PM
[2019-10-06] MEDS ORDERED: ALBUMIN 25% IV ONE ×3 (14:43→16:47)
[2019-10-06] MEDS ORDERED: NS 1,000 ML IV ONE (15:49)
[2019-10-06] MEDS ORDERED: HUMULIN R IV ONE (15:49)
--- NOTE | 2019-10-06 15:50 | PROVIDER DOCUMENTATION ---
This chart was entered by Michelle Schumacher Scribe, acting as scribe for Praveen Glaser MD. HPI-General Adult - General Chief Complaint: Abdominal Pain Stated Complaint: PARASENTESIS Time Seen by Provider: 10/06/19 10:30 Source: patient Allergies/Adverse Reactions: Patient Allergies Allergy/AdvReac Type Severity Reaction Status Date / Time No Known Allergies Allergy Verified 09/01/19 08:05 Home Medications: Home Medication List Medication Instructions Recorded Confirmed Last Taken Type Insulin Glargine [Lantus] 60 unit SQ BID 02/17/15 09/29/19 09/14/19 History Lactulose 60 ml PO DAILY 08/23/15 09/29/19 09/14/19 History Furosemide [Lasix] 80 mg PO DAILY 12/17/18 09/29/19 09/13/19 History Hydrocodone/Acetaminophen 1 tab PO BID 01/14/19 09/29/19 09/13/19 History [Hydrocodone-Acetamin 5-325 mg] Ciprofloxacin HCl [Cipro] 500 mg PO DAILY 06/15/19 09/29/19 09/13/19 History Spironolactone 100 mg PO DAILY 09/16/19 09/29/19 Unknown History - History of Present Illness -Gen Adult Nature of Presenting Problems: 59 yowm presents to the ed for paracentesis. pt sts 21lb weight gain since last week when he had paracentesis with 10 L removed. pt c/o pain in abd and lumbar back and sob with fluid retention. pt has been seen multiple times for the same. pt has an appointment on 10/28/19 at [facility] Location of Pain/Injury: reports: abdomen Pain Radiation: reports: back (lumbar) Quality of Pain: reports: fullness, pressure Severity: reports: moderate Onset/Duration: reports: 1 week ago Timing: reports: constant, getting worse Context/Activities at Onset: reports: light activity Modifying Factors: improves with: nothing Associated Symptoms: reports: back/neck pain, constipation. denies: chest pain, diarrhea, fever/chills, nausea, shortness of breath, vomiting Similar Symptoms Previously?: Yes Recently seen or treated by another doctor?: Yes Review of Systems - Adult - REVIEW OF SYSTEMS - ADULT Constitutional: denies: chills, fever Eyes: reports: no symptoms reported Ears, Nose, Mouth & Throat: reports: no symptoms reported Cardiovascular: denies: chest pain, palpitations Respiratory: reports: see HPI, shortness of breath. denies: cough, wheezing Gastrointestinal: reports: see HPI, abdominal pain, constipation. denies: diarrhea, nausea, vomiting Genitourinary: reports: no symptoms reported Musculoskeletal: reports: see HPI, back pain. denies: neck pain Integumentary: reports: no symptoms reported Neurological: denies: dizziness/vertigo, headache/migraines Psychiatric: reports: no symptoms reported Endocrine: reports: no symptoms reported Hematologic/Lymphatic: reports: no symptoms reported Allergic/Immunologic: reports: no symptoms reported All Other Systems: Reviewed and Negative Past History - Adult - PAST MEDICAL HISTORY-ADULT Review of Records: reports: Old Records Reviewed, Nursing Assessment Review, Medications Reviewed, Social history reviewed & non-contributory. Major Childhood Illnesses: reports: denies history Cardiovascular: reports: HTN Respiratory: reports: denies history Gastrointestinal: reports: liver disease, other (esoph varices) Genitourinary: reports: kidney disease Musculoskeletal: reports: denies history Neurological: reports: denies history Psychiatric: reports: depression Endocrine/Immune: reports: Diabetes Other Conditions: reports: other cancer (throat) - PRIOR SURGERIES/PROCEDURES Surgical/Procedure History: reports: other (parencentesis) - IMMUNIZATION STATUS Childhood Immunizations: See Nurse Assessment Flu Vaccine: See Nurse Assessment - FAMILY HISTORY Family History: reviewed, not pertinent - SOCIAL HISTORY Smoking: denies Substance Use: denies Living Situation: family Physical Exam-General - PHYSICAL EXAM-ADULT Initial Vital Signs Reviewed: Yes - CONSTITUTIONAL General Appearance: appears well, alert, no apparent distress - EYES Eyes: PERRL/EOMI, pink conjunctivae - HEAD, EARS, NOSE, MOUTH & THROAT HENMT: moist mucous membranes - NECK Neck: non-tender, full range of motion, supple, normal inspection - RESPIRATORY Respiratory: chest non-tender, lungs clear, normal breath sounds - CARDIOVASCULAR Cardiovascular: normal peripheral pulses, tachycardia (107) - CHEST (BREASTS) Chest/Breast: deferred - GASTROINTESTINAL (ABDOMEN) Abdominal Exam: distended, tenderness (generalized) - GENITOURINARY Male Genitalia: deferred Rectal Exam: deferred Hemoccult Exam: deferred - MUSCULOSKELETAL Back Exam: no CVA tenderness, no vertebral tenderness, other (c/o lumbar pain) Extremity: normal range of motion, non-tender, normal gait - SKIN Integumentary: normal color, normal turgor, warm/dry - NEUROLOGIC Neurologic: grossly normal - PSYCHIATRIC Psych/Mental Status: normal mood/affect, normal thought content, normal thought process, oriented x 3 Progress - PLAN OF CARE/RESULTS Progress/Plan/Lab Results: Vital Signs - 8 hr 10/06/19 08:21 Temperature 97.9 F Pulse Rate 107 H Respiratory Rate 21 Blood Pressure 147/77 O2 Sat by Pulse Oximetry 97 Orders Category Date Time Status US ABD PARACENTESIS W S/I [US] Stat Exams 10/06/19 10:45 Ordered AMMONIA [CHEM] Stat Lab 10/06/19 10:34 Uncollected CBC WITH ELECTRONIC DIFF [HEME] Stat Lab 10/06/19 10:34 Uncollected COMPREHENSIVE METABOLIC PANEL [CHEM] Stat Lab 10/06/19 10:34 Uncollected URINALYSIS W/POSS RFLX CULT [URINALYSIS] Stat Lab 10/06/19 10:34 Uncollected Hydromorphone [Dilaudid] Med 10/06/19 10:47 Discontinued 0.5 mg IV NOW ONE Ondansetron [Zofran] Med 10/06/19 10:47 Discontinued 4 mg IV NOW ONE Orphenadrine [Norflex] Med 10/06/19 10:46 Discontinued 60 mg IM NOW ONE Result Diagrams: 10/06/19 11:00 10/06/19 11:00 - REASSESSMENT Reassessment #1 Time Reassessed: 14:42 (pt is requesting food and feels much improved) Status: improving - ULTRASOUND (By Radiology) 1 US Study: other (US ABD PARACENTESIS W S/I - 10/06/2019 INDICATION: Ascites COMPARISON: 09/29/2019 FINDINGS: The risks and benefits of the procedure were discussed with the patient. All questions were answered. Written and verbal consent was obtained. Ultrasound scanning demonstrated ascites. Overlying skin was prepped and draped in sterile fashion. Local anesthesia was achieved with injection of 10 cc 1% lidocaine. The paracentesis catheter was advanced until the return of ascites fluid. 12.4 L of blood-tinged serosanguineous fluid was aspirated. The catheter was withdrawn intact. There were no known complications. IMPRESSION: Technically successful ultrasound-guided paracentesis with no known complications. Electronically signed by Jose Mast 10/06/2019 2:36 PM 10/06/19 1436 Interpreting Physician: Jose Mast MD Dictated Date/Time: 10/06/19 1435 cc: Praveen Glaser MD; None,PCP) - CONSULTS/PCP/HOSPITALIST Notification #1 *Consult/PCP/Hospitalist*: [place] for Hospitalist Dr Deng Time Discussed: 15:21 Consult Disposition: Will see in ED, Admit Departure - Departure Date of Disposition Decision: 10/06/19 Time of Disposition Decision: 15:48 DIAGNOSIS: End stage liver disease, Hepatic encephalopathy, Increased ammonia level, Nausea & vomiting, Cirrhosis of liver with ascites, Renal insufficiency, Uncontrolled diabetes mellitus, Hyponatremia Disposition: ADMITTED INPATIENT 09 Certified Medical Emergency: Emergent Condition: Fair Referrals and Follow-Ups: None,PCP [Primary Care Provider] - - Critical Care Note This patient required my direct & personal management of CC.: No Attestation - Physician/ AMAURY Attestation Patient care was provided by Advanced Practice Provider:: No The physician spent face to face time with patient:: Yes Advanced Practice Provider documentation review:: Supervising physician onsite and consulted in the evaluation and care of this patient. The physician did have a face to face encounter with the patient. This chart was documented by the indicated scribe, (Michelle Schumacher Scribe) and accurately reflects the services I performed and decisions made by me, Praveen Glaser MD, as attested by the provider's signature.
[2019-10-06 15:57] LABS: BODY FLUID SOURCE PERITONEAL FLUID
[2019-10-06 15:58] LABS: WBC BF 118 /cumm
[2019-10-06 16:32] LABS: MONOS 95 %; POLYS 5 %
[2019-10-06 16:46] LABS: URINE SOURCE CLEAN CATCH
[2019-10-06] MEDS ORDERED: TYLENOL PO PRN (16:47)
[2019-10-06] MEDS ORDERED: ZOFRAN IV PRN (16:47)
[2019-10-06 16:51] LABS: BILIRUBIN URINE NEGATIVE (NEGATIVE); BLOOD URINE SMALL (NEGATIVE); COLOR YELLOW; GLUCOSE URINE 1000 mg/dL (NEGATIVE); KETONE URINE NEGATIVE (NEGATIVE); LEUKOCYTES URINE NEGATIVE (NEGATIVE); NITRITE URINE NEGATIVE (NEGATIVE); PH URINE 5.5; PROTEIN URINE NEGATIVE (NEGATIVE); SP GRAVITY URINE 1.015; TURBIDITY URINE CLEAR (CLEAR); UR EPITHELIAL CELLS <10 /HPF (<10); URINE BACTERIA NEGATIVE /HPF; URINE RBC <10 /HPF (<10); URINE WBC <10 /HPF (<10); UROBILINOGEN URINE NORMAL (NORMAL)
[2019-10-06] MEDS ORDERED: ROCEPHIN 1 GM in NS 50 ML IV SCH (17:00)
[2019-10-06] MEDS: LACTULOSE PO SCH (17:50)
[2019-10-06 18:07] LABS: BASO# 0.06 X1000 (0.0-0.2); BASO% 1.3 % (0.0-0.8); EOS# 0.26 X1000 (0.0-0.7); EOS% 5.4 % (0.0-10.0); HEMATOCRIT 37.2 % (42.0-52.0); HEMOGLOBIN 12.1 g/dL (14.0-18.0); LYMPH# 0.88 X1000 (1.2-3.4); LYMPH% 18.3 % (20.5-51.1); MCH 29.8 PG (27-31); MCHC 32.5 g/dL (33-37); MCV 91.6 FL (81-99); MONO# 0.42 X1000 (0.11-0.59); MONO% 8.8 % (1.7-9.3); MPV 10.4 FL (7.4-10.4); NEUT# 3.18 X1000 (1.4-6.5); NEUT% 66.2 % (42.2-75.2); PLT 92 X1000 (130-400); RBC 4.06 XMIL (4.7-6.1); RDW 15.5 % (11.5-14.5)
[2019-10-06 18:24] LABS: CALCIUM 8.2 mg/dL (8.8-10.2); CREATININE 1.9 mg/dL (0.7-1.2); POTASSIUM 4.7 mmol/L (3.5-5.1)
--- NOTE | 2019-10-06 20:50 | HISTORY AND PHYSICAL ---
PRIMARY CARE PHYSICIAN: None listed. CHIEF COMPLAINT: Presents to the ED for paracentesis. States he has had a 21-pound weight gain since last week when he had a paracentesis, with 10 L removed. He has a diagnosis of endstage liver disease, cirrhosis of the liver with ascites. HISTORY OF PRESENTING ILLNESS: This is a 59-year-old male who presents to [facility] for a paracentesis. He states he has had a 21-pound weight gain since last week when he had a paracentesis with 10 L removed. He states he has been having abdominal pain, lumbar back pain and shortness of breath with fluid retention. He states he has felt nauseated and unable to take his lactulose as prescribed. 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 He had abdominal paracentesis in the emergency room today that drained 12.4 L of blood-tinged serosanguineous fluid, with a successful ultrasound-guided paracentesis with no known complications. His laboratory data showed an ammonia level of 75. His BUN is 45 with a creatinine of 2. He has some underlying chronic kidney disease with a baseline, appears to be 1.7 to 1.9. His fluid from the paracentesis was sent for culture and cytology, and he will be admitted for further evaluation and treatment. PAST MEDICAL HISTORY: 1. Type 2 diabetes. 2. Dyslipidemia. 3. Cirrhosis due to GARCIA, with ascites. 4. Depression. 5. Stage 3 chronic renal failure. PAST SURGICAL HISTORY: Denies any major procedures. FAMILY HISTORY: Mother and father had heart issues around the age of 65. Father was a heavy drinker and a heavy tobacco user. SOCIAL HISTORY: He currently lives alone. Denies any tobacco, alcohol or illicit drug use. LABORATORY DATA: White blood cell count of 5.55, hemoglobin 12.3, hematocrit 36.9, platelets 84,000. Sodium 133, potassium 4.7, chloride 99, CO2 is 23, BUN of 45, creatinine of 2, glucose 369, AST 49, ALT 42, total bilirubin of 2.07, alkaline phosphatase of 279. Ammonia 75. DIAGNOSTIC DATA: Paracentesis described on ultrasound removed 12.4 L of blood-tinged serosanguineous fluid, with successful ultrasound-guided paracentesis with no known complications. REVIEW OF SYSTEMS: He denied any fever, chills, blurred vision, dizziness, chest pain or coughing. He did have abdominal pain, generalized lumbar back pain. He did have some shortness of breath and fluid retention, with 3+ pitting edema to bilateral lower extremities. PHYSICAL EXAMINATION: VITAL SIGNS: On arrival he had a temperature of 97.9 degrees, pulse 107, respirations 21, blood pressure 147/77, saturating 97% on room air. GENERAL: This is a 59-year-old morbidly obese male lying in the bed and answers questions appropriately. HEENT: Normocephalic, atraumatic. Normal ENT inspection. Oropharynx and nares are clear. Eyes: Pupils are equal, round and reactive to light and accommodation. Extraocular movements are intact. NECK: Normal inspection, normal range of motion. LUNGS: Clear to auscultation bilaterally, with equal lung expansion and chest wall movement. HEART: Some mild tachycardia at 107, but no murmurs, rubs or gallops. ABDOMEN: Distended. There was some tenderness throughout to palpation. Bowel sounds are present x4 quadrants. MUSCULOSKELETAL: He had normal range of motion. He is noted to have 2 to 3+ pitting edema to bilateral lower extremities. NEUROLOGICAL: The cranial nerves 2-12 appear grossly intact. ASSESSMENT: 1. Cirrhosis of the liver with ascites, status post successful ultrasound-guided paracentesis. 2. Possible spontaneous bacterial peritonitis. 3. Chronic kidney disease stage 3. 4. Diabetes type 2 with hyperglycemia. PLAN: He will be admitted to the medical unit, placed on telemetry. We are going to give him a total of 100 g of albumin today. Fluid from the paracentesis was sent for cytology and body fluid analysis. We will place him on lactulose 30 mL b.i.d., Rocephin 1 g IV q.24. We need to update and confirm his home medications and restart those as appropriate. Recheck CBC and BMP in the a.m. Zofran 4 mg IV q.4 hours p.r.n. for nausea and vomiting. Healthy-heart diet. Further orders after seen by attending. Dictated by HOLLI Wilson for Marcel Deleon MD cc: HOLLI Wilson MD
[2019-10-06] MEDS: ULTRAM PO PRN (21:57)
--- NOTE | 2019-10-06 22:06 | HISTORY AND PHYSICAL ---
ADDENDUM: Patient seen and examined with me face to face. The laboratory, vital signs, and images were reviewed. The patient presented to the emergency department to basically do a paracentesis. As per the patient, he had more than a 20-pound weight gain since last week. At that time, apparently he had 10 L of fluid removed. As per the patient, he has been confused lately, but while he was talking to me, he was completely oriented and describing the whole situation. He does have fluid overload. In the emergency department, around 12.4 L of fluid was removed. He receive only 25 g of albumin in the emergency department, and I will complete the dose with 75 g of albumin so he can receive around 100 g based on the amount that they have removed. Apparently, the fluid was serosanguineous. It has been sent to the laboratory apparently. I will add culture for that fluid, since they asked only for cytology. I will put this patient on antibiotics in case of SBP. Hopefully, if everything is okay, he can be discharged in around 48 hours. I agree with the rest of the nurse practitioner's assessment and plan. cc: Marcel Deleon MD
[2019-10-06] MEDS: LANTUS INSULIN SUBQ SCH (22:49)
[2019-10-06] MEDS: HUMALOG SUBQ SCH (22:50)
[2019-10-07] MEDS: NORCO-5 PO SCH ×3 (00:20→21:32)
[2019-10-07 05:58] LABS: BASO# 0.03 X1000 (0.0-0.2); BASO% 0.8 % (0.0-0.8); EOS# 0.18 X1000 (0.0-0.7); EOS% 4.9 % (0.0-10.0); HEMATOCRIT 32.7 % (42.0-52.0); HEMOGLOBIN 10.8 g/dL (14.0-18.0); LYMPH# 0.56 X1000 (1.2-3.4); LYMPH% 15.1 % (20.5-51.1); MCV 90.8 FL (81-99); MONO# 0.36 X1000 (0.11-0.59); MONO% 9.7 % (1.7-9.3); MPV 11.2 FL (7.4-10.4); NEUT# 2.58 X1000 (1.4-6.5); NEUT% 69.5 % (42.2-75.2); PLT 78 X1000 (130-400); WBC 3.71 X1000 (4.8-10.8)
[2019-10-07 06:20] LABS: ALB/GLOB RATIO 0.9; ALBUMIN 2.8 g/dL (3.5-5.0); CALCIUM 8.3 mg/dL (8.8-10.2); CREATININE 1.9 mg/dL (0.7-1.2); POTASSIUM 4.8 mmol/L (3.5-5.1); TOTAL BILIRUBIN 2.19 mg/dL (0.20-1.00)
[2019-10-07] MEDS: LACTULOSE PO SCH ×2 (06:30→18:56)
[2019-10-07] MEDS: HUMALOG SUBQ SCH ×4 (06:31→21:34)
[2019-10-07] MEDS ORDERED: ALDACTONE PO SCH (09:00)
[2019-10-07] MEDS: LASIX PO SCH (09:04)
[2019-10-07] MEDS: LANTUS INSULIN SUBQ SCH ×2 (09:07→21:34)
[2019-10-07] MEDS: ULTRAM PO PRN ×2 (10:09→18:55)
--- NOTE | 2019-10-07 12:51 | PROGRESS NOTE ---
DATE: 10/07/2019 SUBJECTIVE: This morning, Mr. Winn refers to be doing well. Denies any new complaints. OBJECTIVELY: Vital signs: Blood pressure is 152/66, pulse of 104, respiration is 17, temperature 97.9 degrees, the patient is saturating 99%. General: Mr. Winn is a 59-year-old, morbidly obese gentleman. He was sitting up at the edge of the bed in no distress. HEENT: Mucosa is pink and moist. Anicteric. Acyanotic. Neck: Supple. Mild JVD noted. Chest: Good air entry bilaterally. A few crackles in the posterior lung palacios. Cardiovascular: Regular rate and rhythm. There were no murmurs, no rubs, no gallops. Gastrointestinal: Abdomen was soft, distended, nontender. There is fluid shift. Extremities: 2+ pedal edema. Central nervous system: Patient is awake, alert, oriented. There is no focal deficit. LABORATORY DATA: WBC 3.71, hemoglobin is 10.8, platelet count of 78,000. Chemistry is also reviewed. Creatinine is 1.9. ASSESSMENT AND PLAN: 1. Massive ascites. Patient is status post large volume paracentesis, 12.4 L of blood-stained serosanguineous fluid was aspirated yesterday. The patient remains hemodynamically stable. He was also given I think 100 mg of albumin after the procedure. 2. Cirrhosis of the liver complicated with massive ascites, thrombocytopenia, portal hypertension, splenomegaly. The patient follows up with Dr. Angelo in [facility] at the [facility] and he is currently on a transplant list. He has a visit with the factory assembler on October 28. 3. Uncontrolled diabetes mellitus. We will continue titrating with insulin regimen. 4. Acute on chronic renal failure. We will continue monitoring this and avoid any nephrotoxins. cc: Sky Loza MD
[2019-10-07] MEDS: PERICOLACE PO SCH (21:33)
[2019-10-08 06:01] LABS: HEMATOCRIT 32.4 % (42.0-52.0); HEMOGLOBIN 10.8 g/dL (14.0-18.0); MCH 30.9 PG (27-31); MCHC 33.3 g/dL (33-37); MCV 92.6 FL (81-99); MPV 11.5 FL (7.4-10.4); RBC 3.5 XMIL (4.7-6.1); RDW 15.3 % (11.5-14.5); WBC 3.96 X1000 (4.8-10.8)
[2019-10-08 06:06] LABS: INR 1.34; PROTIME 16.8 Seconds (11.0-16.0)
[2019-10-08 06:12] LABS: ALB/GLOB RATIO 0.8; ALBUMIN 2.5 g/dL (3.5-5.0); CALCIUM 8.3 mg/dL (8.8-10.2); CREATININE 1.9 mg/dL (0.7-1.2); POTASSIUM 4.7 mmol/L (3.5-5.1); TOTAL BILIRUBIN 1.59 mg/dL (0.20-1.00); TOTAL PROTEIN 5.8 g/dL (6.3-8.3)
[2019-10-08 06:15] LABS: HEMOGLOBIN A1C 10.6 % (4.8-6.0)
[2019-10-08] MEDS: HUMALOG SUBQ SCH ×2 (06:15→11:21)
[2019-10-08] MEDS: LACTULOSE PO SCH (06:17)
[2019-10-08] MEDS: LASIX PO SCH (08:49)
[2019-10-08] MEDS: NORCO-5 PO SCH (08:55)
[2019-10-08] MEDS: PERICOLACE PO SCH (08:55)
[2019-10-08] MEDS ORDERED: CIPRO PO SCH (09:00)
[2019-10-08] MEDS ORDERED: ALDACTONE PO SCH (09:00)
[2019-10-08] MEDS: LANTUS INSULIN SUBQ SCH (09:03)
[2019-10-08 11:16] VITALS: BP 119/60
--- NOTE | 2019-10-09 14:26 | DISCHARGE SUMMARY ---
ADMISSION DATE: 10/06/2019 DISCHARGE DATE: 10/08/2019 DISPOSITION: Home. FOLLOW-UP: Hepatology Clinic at [facility]. CONSULTATION DURING THIS ADMISSION: IR intervention. IR was consulted. Ultrasound-guided paracentesis was done where 12.4 blood stained serosanguineous fluid was aspirated. No complications. ADMISSION DIAGNOSIS: 1. Cirrhosis of the liver with ascites. 2. Possible SBP. 3. CKD stage 3. 4. Diabetes mellitus with hyperglycemia. DIAGNOSIS AT THE TIME OF DISCHARGE: 1. Massive ascites. The patient is status post large volume paracentesis. 12.4 blood-stained serosanguineous fluid was aspirated. He continues to be hemodynamically stable. He was given albumin. 2. Cirrhosis of the liver complicated with ascites, thrombocytopenia, portal hypertension, splenomegaly, MELD score of 17 with low sodium and a Child Anderson class C with a score of 10. 3. Uncontrolled diabetes mellitus type 2 with a presenting A1c of 10.6. 4. Coagulopathy secondary to cirrhosis of the liver. 5. Acute on chronic renal failure. 6. History of SBP on chronic antimicrobial therapy. DISCHARGE MEDICATIONS: 1. Insulin Lantus 60 units subcutaneous b.i.d. 2. Lactulose 30 mL p.o. daily. 3. Furosemide 80 mg p.o. daily. 4. Ciprofloxacin 500 p.o. daily. 5. Spironolactone 200 mg p.o. daily. 6. Pamela-Colace 1 tablet b.i.d. 7. Insulin lispro 5 units with meals 3 times per day. PRESENTING COMPLAINT: Overweight, abdominal distention. HISTORY OF PRESENTING COMPLAINT: Mr. Winn is a 59-year-old male who is known to have cirrhosis of the liver, normally follows up with either Hepatology Clinic at [facility], came to the emergency department because of remarkable abdominal distention. Patient was found to have ascites, questionable if it was infected. He underwent a large volume paracentesis where 12.4 L was removed. He was admitted for observation and medical management. HOSPITAL COURSE: Mr. Winn was admitted to the medical floor. He was given 100 g of IV albumin infusion for the large volume paracentesis. He remains for the most part clinically stable with normal vitals throughout the hospital course. He was also found to be remarkably hyperglycemic with a presenting A1c of 10.6. Medications and insulin were uptitrated. This morning Mr. Winn refers to be doing a lot better. He has been able to go and he has been able to take a shower on his own. We think he is clinically stable to be discharged and to follow up with the Hepatology Clinic at [facility]. This morning his vitals, blood pressure was 119/60, pulse of 95, respiration is 19, temperature 98.1 degrees. Patient was saturating 95% on room air. Physical exam for most part is unremarkable except for distended abdomen with fluid shift. All the discharge instructions discussed with Mr. Winn. He voiced understanding. His was at the bedside at the time of the encounter. Time spent for discharge is 38 minutes. cc: Sky Loza MD
== END 2019-10-08 14:01 | disposition home or self-care (01) | DRG 433 ==
LOC: ED 08:19 → EDIPHOLD 16:59 → SUATTDRO 16:59 → 1N 21:22
PROVIDERS: ATTEND Internal Medicine

== ENCOUNTER 2019-12-06 07:27 | Inpatient (IN) ==
[2019-12-06] MEDS ORDERED: DILAUDID IV ONE ×2 (08:19→12:17)
[2019-12-06] MEDS ORDERED: ZOFRAN IV ONE (08:19)
[2019-12-06 08:41] LABS: BASO# 0.05 X1000 (0.0-0.2); BASO% 1.4 % (0.0-0.8); EOS# 0.33 X1000 (0.0-0.7); EOS% 8.9 % (0.0-10.0); HEMATOCRIT 35.7 % (42.0-52.0); HEMOGLOBIN 11.5 g/dL (14.0-18.0); LYMPH% 13.5 % (20.5-51.1); MCHC 32.2 g/dL (33-37); MCV 93.2 FL (81-99); MONO# 0.33 X1000 (0.11-0.59); MONO% 8.9 % (1.7-9.3); MPV 11.9 FL (7.4-10.4); NEUT# 2.49 X1000 (1.4-6.5); NEUT% 67.3 % (42.2-75.2); PLT 73 X1000 (130-400); RBC 3.83 XMIL (4.7-6.1); RDW 15.8 % (11.5-14.5)
--- NOTE | 2019-12-06 08:47 | EKG Report ---
Test Performed on : 12/06/2019 08:19:59 AM Test Reason : sob Blood Pressure : / mmHG Vent. Rate : 097 BPM Atrial Rate : 097 BPM P-R Int : 136 ms QRS Dur : 138 ms QT Int : 404 ms P-R-T Axes : -21 072 005 degrees QTc Int : 513 ms Normal sinus rhythm. Right bundle branch block Abnormal ECG When compared with ECG of 16-SEP-2019 08:05, (Unconfirmed) fusion complexes are no longer present Unconfirmed Result
[2019-12-06 08:54] LABS: ALB/GLOB RATIO 0.5; ALBUMIN 2.3 g/dL (3.5-5.0); CALCIUM 7.8 mg/dL (8.8-10.2); CREATININE 1.8 mg/dL (0.7-1.2); POTASSIUM 4.2 mmol/L (3.5-5.1); TOTAL BILIRUBIN 1.54 mg/dL (0.20-1.00); TOTAL PROTEIN 6.5 g/dL (6.3-8.3)
[2019-12-06] MEDS ORDERED: LACTULOSE PO ONE (11:00)
--- NOTE | 2019-12-06 12:56 | PROVIDER DOCUMENTATION ---
This chart was entered by Nathalia Garcia Scribe, acting as scribe for Donald Stewart CRNP. HPI-General Adult <AlfreditoPraveen WolfePetra - Last Filed: 12/06/19 15:50> - General Source: patient - History of Present Illness -Gen Adult Nature of Presenting Problems: 59yom presents to ED cc SOB, weight gain and LUQ pain for last week. He had last parasentesis 11/26/2019. He is followed at [facility]. Pt has hx of cirrhosis, kidney disease and HTN. Location of Pain/Injury: reports: abdomen Quality of Pain: reports: pressure, tightness Severity: reports: severe Onset/Duration: reports: 1 week ago Timing: reports: still present Context/Activities at Onset: reports: light activity Modifying Factors: worse with: lying down, palpation Associated Symptoms: reports: shortness of breath Similar Symptoms Previously?: Yes Recently seen or treated by another doctor?: Yes (seen in ED for parasentesis 11/26/2019) <Donald Stewart - Last Filed: 12/06/19 15:55> - General Chief Complaint: Shortness of Breath Stated Complaint: STOMACH PAIN Time Seen by Provider: 12/06/19 08:03 Allergies/Adverse Reactions: Patient Allergies Allergy/AdvReac Type Severity Reaction Status Date / Time No Known Allergies Allergy Verified 12/06/19 07:56 Home Medications: Home Medication List Medication Instructions Recorded Confirmed Last Taken Type Insulin Glargine [Lantus] 60 unit SQ BID 02/17/15 12/06/19 12/06/19 History Lactulose 30 ml PO DAILY 08/23/15 12/06/19 12/05/19 History Hydrocodone/Acetaminophen 1 tab PO BID 01/14/19 12/06/19 12/05/19 20:00 History [Hydrocodone-Acetamin 5-325 mg] Ciprofloxacin HCl [Cipro] 500 mg PO DAILY 06/15/19 12/06/19 12/05/19 History Furosemide [Lasix] 80 mg PO DAILY tab 10/08/19 12/06/19 12/05/19 Rx Dulaglutide [Trulicity] 1 dose SQ DIRECTED 12/06/19 12/06/19 11/28/19 History Insulin Aspart [Novolog Flexpen] 10 unit SQ TID AC 12/06/19 12/06/19 12/06/19 History Multivit with Iron,Minerals [Super 1 tab PO DAILY 12/06/19 12/06/19 12/05/19 History Multiple] Spironolactone 100 mg PO DAILY 12/06/19 12/06/19 11/26/19 History Review of Systems - Adult - REVIEW OF SYSTEMS - ADULT Constitutional: reports: see HPI, fatique. denies: chills, fever Eyes: reports: no symptoms reported Ears, Nose, Mouth & Throat: reports: no symptoms reported Cardiovascular: reports: see HPI. denies: chest pain Respiratory: reports: see HPI, shortness of breath. denies: cough, wheezing Gastrointestinal: reports: see HPI, abdominal pain (LUQ), other (fluid build-up in abdomen) Genitourinary: reports: no symptoms reported Musculoskeletal: reports: no symptoms reported Integumentary: reports: no symptoms reported Neurological: reports: no symptoms reported Psychiatric: reports: no symptoms reported Endocrine: reports: no symptoms reported Hematologic/Lymphatic: reports: no symptoms reported Allergic/Immunologic: reports: no symptoms reported All Other Systems: Reviewed and Negative <Donald Stewart - Last Filed: 12/06/19 15:55> Past History - Adult - PAST MEDICAL HISTORY-ADULT Review of Records: reports: Old Records Reviewed, Nursing Assessment Review, Medications Reviewed, Social history reviewed & non-contributory. Major Childhood Illnesses: reports: denies history Cardiovascular: reports: HTN Respiratory: reports: denies history Gastrointestinal: reports: GI bleed, liver disease (cirrhosis), other (esoph varices) Obstetrical/Gynecological: reports: denies history Genitourinary: reports: kidney disease Musculoskeletal: reports: denies history Neurological: reports: denies history Psychiatric: reports: depression Endocrine/Immune: reports: Diabetes Other Conditions: reports: other cancer (throat) - PRIOR SURGERIES/PROCEDURES Surgical/Procedure History: reports: reviewed, not pertinent, other (parencentesis) - IMMUNIZATION STATUS Childhood Immunizations: See Nurse Assessment Flu Vaccine: See Nurse Assessment - FAMILY HISTORY Family History: reviewed, not pertinent <Donald Stewart - Last Filed: 12/06/19 15:55> Physical Exam-General - PHYSICAL EXAM-ADULT Initial Vital Signs Reviewed: Yes - CONSTITUTIONAL General Appearance: appears well, alert, obese. negative: anxious, combative - EYES Eyes: PERRL/EOMI, pink conjunctivae. negative: photophobia - HEAD, EARS, NOSE, MOUTH & THROAT HENMT: normocephalic/atraumatic, moist mucous membranes. negative: angioedema - NECK Neck: supple, normal inspection - RESPIRATORY Respiratory: chest non-tender, lungs clear, normal breath sounds. negative: rhonchi, wheezing - CARDIOVASCULAR Cardiovascular: normal peripheral pulses, regular rate, rhythm. negative: bradycardia, tachycardia - GASTROINTESTINAL (ABDOMEN) Abdominal Exam: normal bowel sounds, distended (largely and tight), tenderness (LUQ). negative: guarding - MUSCULOSKELETAL Extremity: normal inspection. negative: deformity - SKIN Integumentary: normal color, normal turgor, warm/dry. negative: diaphoresis, jaundice, rash - PSYCHIATRIC Psych/Mental Status: normal mood/affect, oriented x 3. negative: anxious <Donald Stewart - Last Filed: 12/06/19 15:55> Progress - PLAN OF CARE/RESULTS Progress/Plan/Lab Results: Vital Signs - 8 hr 12/06/19 07:32 12/06/19 10:11 12/06/19 12:37 Temperature 98 F Pulse Rate 105 H 92 H 96 H Respiratory Rate 20 18 18 Blood Pressure 144/76 142/75 135/77 O2 Sat by Pulse Oximetry 98 97 95 Laboratory Results - last 24 hr 12/06/19 12/06/19 12/06/19 08:10 08:10 08:10 WBC RBC Hgb Hct MCV MCH MCHC RDW Std Deviation Plt Count MPV Immature Gran % (Auto) Neut % (Auto) Lymph % (Auto) Crane % (Auto) Eos % (Auto) Baso % (Auto) Immature Gran # (Auto) Neut # (Auto) Lymph # (Auto) Crane # (Auto) Eos # (Auto) Baso # (Auto) Sodium 137 Potassium 4.2 Chloride 106 Carbon Dioxide 21 L Anion Gap 10 BUN 41 H Creatinine 1.8 H Estimated GFR/1.73 m2 39 BUN/Creatinine Ratio 23 Glucose 250 H Calculated Osmolality 292 Calcium 7.8 L Total Bilirubin 1.54 H AST 60 H ALT 56 H Alkaline Phosphatase 297 H Ammonia Troponin T High Sens 105 H* Dhl-I-Yndhszwpdtg Pept 85 Total Protein 6.5 Albumin 2.3 L Globulin 4.2 Albumin/Globulin Ratio 0.5 03/16/20 03/16/20 08:10 08:31 WBC 3.70 L RBC 3.83 L Hgb 11.5 L Hct 35.7 L MCV 93.2 MCH 30.0 MCHC 32.2 L RDW Std Deviation 15.8 H Plt Count 73 L MPV 11.9 H Immature Gran % (Auto) 0.0 Neut % (Auto) 67.3 Lymph % (Auto) 13.5 L Crane % (Auto) 8.9 Eos % (Auto) 8.9 Baso % (Auto) 1.4 H Immature Gran # (Auto) 0.00 Neut # (Auto) 2.49 Lymph # (Auto) 0.50 L Crane # (Auto) 0.33 Eos # (Auto) 0.33 Baso # (Auto) 0.05 Sodium Potassium Chloride Carbon Dioxide Anion Gap BUN Creatinine Estimated GFR/1.73 m2 BUN/Creatinine Ratio Glucose Calculated Osmolality Calcium Total Bilirubin AST ALT Alkaline Phosphatase Ammonia 119 H Troponin T High Sens Suh-S-Wqtjzzbkara Pept Total Protein Albumin Globulin Albumin/Globulin Ratio Orders Category Date Time Status US ABD PARACENTESIS W S/I [US] Stat Exams 12/06/19 08:18 Ordered AMMONIA [CHEM] Stat Lab 12/06/19 08:31 Completed BNP [PRO B-NATRIURETIC PEPTIDE] Stat Lab 12/06/19 08:10 Completed CBC WITH ELECTRONIC DIFF [HEME] Stat Lab 12/06/19 08:10 Completed COMPREHENSIVE METABOLIC PANEL [CHEM] Stat Lab 12/06/19 08:10 Completed TROPONIN T HIGH SENSITIVITY Stat Lab 12/06/19 08:10 Completed Hydromorphone [Dilaudid] Med 12/06/19 08:19 Discontinued 1 mg IV NOW ONE Hydromorphone [Dilaudid] Med 12/06/19 12:17 Discontinued 1 mg IV NOW ONE Lactulose Med 12/06/19 11:00 Discontinued 30 ml PO NOW ONE Ondansetron [Zofran] Med 12/06/19 08:19 Discontinued 4 mg IV NOW ONE EKG [EKG] Stat Ther 12/06/19 08:04 Draft EKG [EKG] Stat Ther 12/06/19 12:17 Ordered Result Diagrams: 12/06/19 08:10 12/06/19 08:10 - CONSULTS/PCP/HOSPITALIST Notification Consult Disposition: Will see in ED, Admit <Praveen Glaser - Last Filed: 12/06/19 15:50> - PLAN OF CARE/RESULTS Progress/Plan/Lab Results: Vital Signs - 8 hr 12/06/19 07:32 Temperature 98 F Pulse Rate 105 H Respiratory Rate 20 Blood Pressure 144/76 O2 Sat by Pulse Oximetry 98 Laboratory Results - last 24 hr 12/06/19 12/06/19 12/06/19 08:10 08:10 08:10 WBC RBC Hgb Hct MCV MCH MCHC RDW Std Deviation Plt Count MPV Immature Gran % (Auto) Neut % (Auto) Lymph % (Auto) Crane % (Auto) Eos % (Auto) Baso % (Auto) Immature Gran # (Auto) Neut # (Auto) Lymph # (Auto) Crane # (Auto) Eos # (Auto) Baso # (Auto) Sodium 137 Potassium 4.2 Chloride 106 Carbon Dioxide 21 L Anion Gap 10 BUN 41 H Creatinine 1.8 H Estimated GFR/1.73 m2 39 BUN/Creatinine Ratio 23 Glucose 250 H Calculated Osmolality 292 Calcium 7.8 L Total Bilirubin 1.54 H AST 60 H ALT 56 H Alkaline Phosphatase 297 H Ammonia Troponin T High Sens 105 H* Zni-Z-Hkcenimgjea Pept 85 Total Protein 6.5 Albumin 2.3 L Globulin 4.2 Albumin/Globulin Ratio 0.5 12/06/19 12/06/19 08:10 08:31 WBC 3.70 L RBC 3.83 L Hgb 11.5 L Hct 35.7 L MCV 93.2 MCH 30.0 MCHC 32.2 L RDW Std Deviation 15.8 H Plt Count 73 L MPV 11.9 H Immature Gran % (Auto) 0.0 Neut % (Auto) 67.3 Lymph % (Auto) 13.5 L Crane % (Auto) 8.9 Eos % (Auto) 8.9 Baso % (Auto) 1.4 H Immature Gran # (Auto) 0.00 Neut # (Auto) 2.49 Lymph # (Auto) 0.50 L Crane # (Auto) 0.33 Eos # (Auto) 0.33 Baso # (Auto) 0.05 Sodium Potassium Chloride Carbon Dioxide Anion Gap BUN Creatinine Estimated GFR/1.73 m2 BUN/Creatinine Ratio Glucose Calculated Osmolality Calcium Total Bilirubin AST ALT Alkaline Phosphatase Ammonia 119 H Troponin T High Sens Kfn-Z-Wnnmthehaeb Pept Total Protein Albumin Globulin Albumin/Globulin Ratio Orders Category Date Time Status US ABD PARACENTESIS W S/I [US] Stat Exams 12/06/19 08:18 Ordered AMMONIA [CHEM] Stat Lab 12/06/19 08:31 Completed BNP [PRO B-NATRIURETIC PEPTIDE] Stat Lab 12/06/19 08:10 Completed CBC WITH ELECTRONIC DIFF [HEME] Stat Lab 12/06/19 08:10 Completed COMPREHENSIVE METABOLIC PANEL [CHEM] Stat Lab 12/06/19 08:10 Completed TROPONIN T HIGH SENSITIVITY Stat Lab 12/06/19 08:10 Completed Hydromorphone [Dilaudid] Med 12/06/19 08:19 Discontinued 1 mg IV NOW ONE Ondansetron [Zofran] Med 12/06/19 08:19 Discontinued 4 mg IV NOW ONE EKG [EKG] Stat Ther 12/06/19 08:04 Draft Result Diagrams: 12/06/19 08:10 12/06/19 08:10 - EKG 1 Time of EKG reading by physician:: 08:19 EKG Read and Signed by:: Praveen Glaser EKG Interpretation (*Must complete 3 of following elements*): Abnormal Rate: 97 Rhythm: NSR [place]: normal QRS: RBB PA Interval: normal - CONSULTS/PCP/HOSPITALIST Notification #1 *Consult/PCP/Hospitalist*: Bing/BENEFITS MANAGER Time Discussed: 12:16 Consult Disposition: Will see in ED, Admit <Donald Stewart - Last Filed: 12/06/19 15:55> Departure - Departure Certified Medical Emergency: Emergent - Critical Care Note This patient required my direct & personal management of CC.: No <Praveen Glaser - Last Filed: 12/06/19 15:50> - Departure Date of Disposition Decision: 12/06/19 Time of Disposition Decision: 12:16 Certified Medical Emergency: Emergent - Critical Care Note This patient required my direct & personal management of CC.: No <Donald Stewart - Last Filed: 12/06/19 15:55> - Departure DIAGNOSIS: Hepatic encephalopathy, Increased ammonia level, Abnormal cardiac enzyme level, Cirrhosis of liver with ascites, Uncontrolled diabetes mellitus Disposition: ADMITTED INPATIENT 09 Condition: Fair Additional Instructions: ED Follow Up Instructions: You have been treated by a care provider in the Emergency Department. These instructions are being provided to you so you can have an understanding of how to care for yourself upon discharge. Upon discharge from the Emergency Department, you are responsible for making arrangements for follow-up care by a physician of your choice. Take all prescribed medications as directed. Return to the Emergency Department immediately for any new or worsening symptoms. You may call the Physician Referral phone number at [phone] to obtain a list of Physicians who are taking new patients. Referrals and Follow-Ups: None,PCP [Primary Care Provider] - Attestation - Physician/ AMAURY Attestation Patient care was provided by Advanced Practice Provider:: Yes Advanced Practice Provider:: Donald Stewart Advanced Practice Provider documentation review:: The Mid-level provider documentation, treatment plan and medical decision making was reviewed by the physician who agrees with all treatment and medical decision making by the MLP. The physician spent face to face time with patient:: Yes Advanced Practice Provider documentation review:: Supervising physician onsite and consulted in the evaluation and care of this patient. The physician did have a face to face encounter with the patient. <Donald Stewart - Last Filed: 12/06/19 15:55> This chart was documented by the indicated scribe, (Nathalia Garcia Scribe) and accurately reflects the services I performed and decisions made by , Donald Stewart CRNP, as attested by the provider's signature.
[2019-12-06] MEDS ORDERED: ALBUMIN 25% IV ONE ×2 (14:12→14:31)
[2019-12-06] MEDS ORDERED: ZOFRAN IV PRN (14:14)
--- NOTE | 2019-12-06 14:14 | Diag Imaging Result Doc PS360 ---
US ABD PARACENTESIS W S/I - 12/06/2019 INDICATION: cirrhosis with ascites COMPARISON: None FINDINGS: The risks and benefits of the procedure were discussed with the patient. All questions were answered. Written and verbal consent was obtained. Ultrasound scanning demonstrated ascites. Overlying skin was prepped and draped in sterile fashion. Anesthesia was achieved with injection of 10 cc 1% lidocaine. The paracentesis catheter was advanced until the return of ascites fluid. 12.3 L was aspirated. The catheter was withdrawn intact. The patient reported no symptoms from the procedure. IMPRESSION: Successful and uncomplicated ultrasound-guided paracentesis. Electronically signed by Lai Shaikh 12/06/2019 2:11 PM
--- NOTE | 2019-12-06 16:44 | HISTORY AND PHYSICAL ---
CHIEF COMPLAINT: Abdominal distention and shortness of breath. HPI: This is a 59-year-old gentleman with a history of GARCIA who is currently under evaluation for liver transplant through hepatology at [facility]. He presents to the emergency room complaining of increased shortness of breath, weight gain, abdominal pain and distention. He states his last paracentesis was November 25. He reports approximately 20 pound weight gain. He states that his last paracentesis was November 25, at that time 7.4 L was withdrawn. He was noted to have an ammonia level of 119. He does state that he has been taking his lactulose. At the time of my exam he is alert and oriented. He is status post abdominal paracentesis ultrasound-guided per Radiology for 12.3 L aspirated. He states that he is breathing much better. He has no more abdominal discomfort. He does have some generalized itching which is pretty well constant that he states Benadryl does relieve. On exam he is noted to have asterixis. PAST MEDICAL HISTORY: 1. GARCIA with ascites. 2. Diabetes mellitus type 2. 3. Dyslipidemia. 4. Depression. 5. Stage 3 chronic renal failure. PAST SURGICAL HISTORY: Denies. SOCIAL HISTORY: He lives with a family member. Denies any alcohol, tobacco, or illicit drug use. FAMILY HISTORY: Mother and father had heart disease. Father was a alcoholic and a heavy smoker. ALLERGIES: He denies any allergies. HOME MEDICATIONS: A list will be obtained by the nursing staff and once verified will review and restart as appropriate. REVIEW OF SYSTEMS: Discussed with patient with pertinent positives stated in the HPI. He denied any syncope or dizziness, chest pain or palpitations, any night sweats, any fevers or chills, a productive cough, any wheezing any vomiting, diarrhea, constipation, black or bloody vomitus or stools any hematuria, dysuria, frequency, urgency. PHYSICAL EXAM: This is a 59-year-old gentleman who is lying on the stretcher in the emergency room in no distress. VITAL SIGNS: Blood pressure is 135/77 with a heart rate of 96, respirations are 18, temperature is 98 degrees with room air saturations 95 to 98 percent. HEENT: Pupils are equal, round, react to light. EOMs are intact. Sclerae are anicteric. Head is normocephalic, atraumatic. Mucous membranes are moist. NECK: Supple with trachea midline. CARDIOVASCULAR: Regular rate and rhythm. S1 and S2 are appreciated. No murmur. Calves are nontender bilateral with peripheral pulses palpable x4 extremities. PULMONARY: Breath sounds are clear. No increased work of breathing noted. Chest rise, falls symmetrically with respiration. Chest wall is nontender to palpation. ABDOMEN: Distended, firm with bowel sounds in all 4 quadrants. NEUROLOGIC: He is alert and oriented x3. ASSESSMENT AND PLAN: 1. 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 2. Chronic kidney disease stage 3. 3. Diabetes mellitus type 2 with hyperglycemia. PLAN: The patient will be admitted to the medical unit, Telemetry. Total of 100 g of albumin. lactulose 30 mL b.i.d. home medicines as appropriate. pattern blood glucose with sliding scale insulin. CBC, CMP and ammonia in the morning. Benadryl for itching. Plan was discussed with Dr. Merritt. Further treatments pending hospital course. Dictated by HOLLI Nuno for Nahun South MD Addendum: Patient seen and examined by myself. Agree with HOLLI note. It reflects my assessment and plan. Patient is being admitted to hospital for ascites. Will do paracentesis and will follow. cc: HOLLI Nuno MD [facility]
[2019-12-06] MEDS ORDERED: BENADRYL PO PRN (17:04)
[2019-12-06] MEDS: HUMALOG SUBQ SCH ×2 (17:39→21:18)
[2019-12-06] MEDS: OXY IR PO PRN (19:11)
[2019-12-06] MEDS ORDERED: NON-FORMULARY BULK MED SUBQ SCH (19:14)
[2019-12-06] MEDS ORDERED: NON-FORMULARY MED (Dulaglutide [Trulicity] 1 DOSE) SUBQ SCH (20:00)
[2019-12-06] MEDS ORDERED: NORCO-5 PO SCH (21:00)
[2019-12-06] MEDS: LACTULOSE PO SCH (21:15)
[2019-12-07] MEDS: OXY IR PO PRN (03:09)
[2019-12-07] MEDS: HUMALOG SUBQ SCH (06:51)
[2019-12-07 07:06] LABS: BASO# 0.02 X1000 (0.0-0.2); BASO% 0.7 % (0.0-0.8); EOS# 0.16 X1000 (0.0-0.7); EOS% 5.4 % (0.0-10.0); HEMATOCRIT 31.8 % (42.0-52.0); HEMOGLOBIN 10.3 g/dL (14.0-18.0); LYMPH# 0.29 X1000 (1.2-3.4); LYMPH% 9.7 % (20.5-51.1); MCH 30.3 PG (27-31); MCHC 32.4 g/dL (33-37); MCV 93.5 FL (81-99); MONO# 0.36 X1000 (0.11-0.59); MPV 11.2 FL (7.4-10.4); NEUT# 2.16 X1000 (1.4-6.5); NEUT% 72.2 % (42.2-75.2); PLT 59 X1000 (130-400); RDW 15.4 % (11.5-14.5); WBC 2.99 X1000 (4.8-10.8)
[2019-12-07 07:33] LABS: ALB/GLOB RATIO 0.7; ALBUMIN 2.5 g/dL (3.5-5.0); CALCIUM 7.7 mg/dL (8.8-10.2); CREATININE 1.6 mg/dL (0.7-1.2); POTASSIUM 4.8 mmol/L (3.5-5.1); TOTAL BILIRUBIN 2.06 mg/dL (0.20-1.00); TOTAL PROTEIN 5.9 g/dL (6.3-8.3)
[2019-12-07 07:53] VITALS: BP 136/71
[2019-12-07] MEDS ORDERED: ALDACTONE PO SCH (09:00)
[2019-12-07] MEDS: LACTULOSE PO SCH (09:04)
--- NOTE | 2019-12-07 10:48 | DISCHARGE SUMMARY ---
ADMISSION DATE: 12/06/2019 DISCHARGE DATE: 12/07/2019 DISCHARGE DIAGNOSES: 1. Nonalcoholic steatohepatitis with ascites, improved. 2. Diabetes mellitus type 2. 3. Dyslipidemia. 4. Depression. 5. Chronic kidney disease stage 3. PROCEDURES: Paracentesis, ultrasound removed successfully 12.3 L of ascitic fluid. HOSPITAL COURSE: The patient basically came to the emergency department because of abdominal distention. He knows that he has very advanced liver disease. He is on the list for liver transplant on [facility]. This patient is going to be admitted for observation after this massive ascites removal. Patient, upon my examination this morning, he was doing fine. No abdominal pain. No nausea or vomiting. He was doing okay so he is going to be discharged in stable condition with follow-up with his primary care doctor and primary jailer/training officer in [facility]. DISCHARGE PHYSICAL EXAMINATION: Vital Signs: Temperature 97.4 degrees, heart rate 98, respiratory rate 18, blood pressure 136/71, O2 saturation 98% on room air. General: This is a 59-year-old chronically ill-appearing male, lying in bed, in no acute distress. Cardiovascular: S1, S2 heard. No murmurs, gallops, or rubs. Regular rate and rhythm. Respiratory: Clear bilaterally to auscultation. No work of breathing or using accessory muscles. Abdomen: Soft, nontender to palpation. Bowel sounds present. No organomegaly. The abdomen is definitely distended. Neurological: Patient alert, oriented x3. Moves 4 extremities. DISCHARGE DISPOSITION: 1. Home to self-care. 2. Follow up with his primary jailer/training officer in [facility] in his primary care physician. 3. Discharge medications, we are not making any changes to his current medications. cc: Nahun South MD
[2019-12-07 20:14] LABS: ALBUMIN BODY FLUID 0.3 g/dL; AMYLASE BODY FLUID 32 U/L; TOTAL PROT BODY FLUID 0.5 g/dL
[2019-12-07 20:15] LABS: BODY FLUID SOURCE PERITONEAL FLUID; WBC BF 108 /cumm
[2019-12-07 20:16] LABS: MONOS 89 %; POLYS 11 %
== END 2019-12-07 10:09 | disposition home or self-care (01) | DRG 433 ==
LOC: ED 07:27 → EDIPHOLD 16:24 → 3N 18:28
PROVIDERS: ATTEND Internal Medicine